=== PATIENT | female | born 1970 | race African-American/Black ===

== ENCOUNTER 2021-07-27 12:18 | Emergency (ER) | payer MEDICAID, OTHER ==
[~2021-07-27] VITALS: Ht 162.6 cm; Wt 86.8 kg
[2021-07-27 12:20] VITALS: BP 147/87
[2021-07-27 14:23] LABS: Basophils # (auto) 0 10 ^3/uL (0-0.2); Eosinophils # (auto) 0.1 10 ^3/uL (0-0.8); Eosinophils % (auto) 0.9 % (0.0-7.0); Hemoglobin 10.8 g/dL (12.2-16.2); Lymphocytes # (auto) 2.3 10 ^3/uL (0.4-5.4); Mean Corpuscular Hemoglobin 25.4 pg (28.0-32.0); Monocytes # (auto) 0.5 10 ^3/uL (0-1.3); Neutrophils # (auto) 2.9 10 ^3/uL (1.6-8.6); Red Cell Distribution Width 17.1 % (11.8-14.3); White Blood Cell 5.8 10^3/uL (4.4-10.8)
[2021-07-27 14:26] LABS: Basophils % (auto) 0.6 % (0.0-2.0); Hematocrit 33.6 % (36.0-46.0); Lymphocytes % (auto) 39.5 % (10.0-50.0); Mean Corpuscular Volume 79.2 fL (80.0-100.0); Monocytes % (auto) 9.3 % (0.0-12.0); Neutrophils % (auto) 49.7 % (37.0-80.0); Red Blood Cells 4.24 10^6/uL (4.0-5.20)
[2021-07-27 14:39] LABS: Albumin 3.7 g/dL (3.4-5.0); Anion Gap 4 (5-15); Blood Urea Nitrogen 13 mg/dL (7-18); Calcium 8.8 mg/dL (8.5-10.1); Carbon Dioxide 27 mmol/L (21-32); Chloride 108 mmol/L (98-107); Glucose 92 mg/dL (74-106); Sodium 139 mmol/L (136-145)
[2021-07-27 14:45] LABS: Alanine Aminotransferase 19 U/L (13-56); Alkaline Phosphatase 64 U/L (45-117); Aspartate Aminotransferase 12 U/L (15-37); BUN/Creatinine Ratio 16.5; Bilirubin, Total 0.5 mg/dL (0.2-1.0); GFR African American 99 mL/min; GFR Non-African American 82 mL/min; Total Protein 7.8 g/dL (6.4-8.2)
[2021-07-27 15:05] LABS: Urine WBC None Seen /hpf (0 - 5)
[2021-07-27 15:16] LABS: Urine Bacteria NONE SEEN /hpf (None Seen); Urine Blood Negative /uL (Negative); Urine Specific Gravity 1.017 (1.001-1.035)
[2021-07-27] MEDS ORDERED: ACETAMINOPHEN 500 MG TAB PO ONE (16:30)
== END 2021-07-27 16:40 | disposition home or self-care (01) ==
LOC: ER 12:18
DX: G44.209 Tension-type headache, unspecified, not intractable (principal); R00.2 Palpitations; Z98.890 Other specified postprocedural states
CPT/HCPCS: 36415; 70450; 71045; 80053; 81001; 84484; 85025